=== PATIENT | female | born 1970 | race Caucasian/White ===

== ENCOUNTER 2017-09-14 18:22 | Emergency (ER) | payer BC ==
[2017-09-14 18:28] VITALS: BP 165/88; PULSE 95; TEMP 98.6; BMI 37.1
[2017-09-14 18:39] LABS: HCG,QUALITATIVE URINE Negative
[2017-09-14 18:44] LABS: PH,URINE 7.5 (4.5-8); URINE APPEARANCE Clear; URINE BILIRUBIN Negative (NEGATIVE); URINE GLUCOSE (UA) Negative (NEGATIVE); URINE KETONE Negative (NEGATIVE); URINE LEUK ESTERASE Negative (NEGATIVE); URINE NITRITE Negative (NEGATIVE); URINE PROTEIN Negative (NEGATIVE); URINE UROBILINOGEN 0.2 (0.2-1.0)
[2017-09-14 18:46] LABS: URINE BLOOD Trace-intact (NEGATIVE); URINE COLOR YELLOW
--- NOTE | 2017-09-14 19:41 | PDOC ---
History of Present Illness - General History Source: Patient Exam Limitations: No Limitations - History of Present Illness Initial Comments: 09/14/17 20:15 The patient is a 46 year old female with no significant past medical history who presents to the ED with complaints of urinary urgency and left sided flank pain that began today. She states this morning she woke up and had an episode of diarrhea. Shortly after she reports having the urge to urinate all day accompanied by a pain in her left side and mild nausea. She denies ever having similar symptoms in the past. Denies personal history or family history of kidney stones. She denies any associated fevers or chills. Denies any hematuria , dysuria, or frequency. PAST MEDICAL HISTORY: no significant history PAST SURGICAL HISTORY: no significant history FAMILY HISTORY: no pertinent history SOCIAL HISTORY: Pt lives with family and is employed. MEDICATIONS: reviewed ALLERGIES: As per nursing notes Review of Systems General: No fevers or chills, no weakness, no weight loss HEENT: No change in vision. No sore throat,. No ear pain CardioVascular: No chest pain or shortness of breath Respiratory:No cough, or wheezing. Gastrointestinal:(+) nausea, diarrhea. No vomiting or constipation, No rectal bleeding Genitourinary: (+) urgency. No dysuria, hematuria, or frequency Musculoskeletal: No joint or muscle pain or swelling Neurologic: No headache, vertigo, dizziness or loss of consciousness Psychiatric: nor depression Skin: No rashes or easy bruising Endocrine: no increased thirst or abnormal weight change Allergic: no skin or latex allergy All other systems reviewed and normal Physical Exam GENERAL: The patient is awake, alert, and fully oriented, in no acute distress. HEAD: Normal with no signs of trauma. EYES: Pupils equal, round and reactive to light, extraocular movements intact, sclera anicteric, conjunctiva clear. EXTREMITIES: Normal range of motion, no edema. NEUROLOGICAL: Normal speech, normal gait. PSYCH: Normal mood, normal affect. SKIN: Warm, Dry, normal turgor, no rashes or lesions noted <Judith Cummins - Last Filed: 09/14/17 20:14> - General History Source: Patient Exam Limitations: No Limitations - History of Present Illness Initial Comments: A portion of this note was documented by scribe services under my direction. I have reviewed the details of the note, within reason, and agree with the documentation. The case summary and management plan written by me. Assessment and plan: This is a 46-year-old female who comes in complaining of left flank pain and some urinary urgency. Patient urinalysis was positive for blood. I will obtain a workup to rule out renal colic: Workup will include CBC, comp, CAT scan abdomen and pelvis, pain medication and IV fluids We will reassess and review workup, 09/14/17 22:20 Reevaluation patient's pain has resolved with the Toradol and fluids. Patient' s CAT scan shows a 7 mm stone at the left UVJ. The given the fact the patient's pain has resolved very likely the stone may have passed however well give her urology follow-up some prescription for pain medication and Flomax. Patient discharged home. <Mishel Jim I - Last Filed: 09/14/17 22:25> - General Chief Complaint: Urinary Problem Stated Complaint: urinary urgency Time Seen by Provider: 09/14/17 19:35 Past History <Judith Cummins - Last Filed: 09/14/17 20:14> - Past Medical History Asthma: Yes COPD: No - Suicide/Smoking/Psychosocial Hx Smoking History: Never smoked Hx Alcohol Use: Yes Drug/Substance Use Hx: No Substance Use Type: Alcohol <Mishel Jim I - Last Filed: 09/14/17 22:25> - Past Medical History Allergies/Adverse Reactions: Allergies Allergy/AdvReac Type Severity Reaction Status Date / Time No Known Allergies Allergy Verified 09/14/17 18:23 Home Medications: Ambulatory Orders Naproxen [Naprosyn] 500 mg PO BID #20 tablet 09/14/17 Ondansetron [Zofran Odt -] 4 mg SL TID PRN #14 od.tablet 09/14/17 Tamsulosin HCl [Flomax] 0.4 mg PO DAILY #30 cap.er.24h 09/14/17 *Physical Exam - Vital Signs Last Vital Signs Temp Pulse Resp BP Pulse Ox 98.6 F 95 H 18 165/88 99 09/14/17 18:22 09/14/17 18:22 09/14/17 18:22 09/14/17 18:22 09/14/17 18:22 <Judith Cummins - Last Filed: 09/14/17 20:14> - Vital Signs Last Vital Signs Temp Pulse Resp BP Pulse Ox 98.6 F 95 H 18 165/88 99 09/14/17 18:22 09/14/17 18:22 09/14/17 18:22 09/14/17 18:22 09/14/17 18:22 <Mishel Jim I - Last Filed: 09/14/17 22:25> ED Treatment Course - ADDITIONAL ORDERS Additional order review: Laboratory Results 09/14/17 18:27 Urine Color Yellow Urine Appearance Clear Urine pH 7.5 Ur Specific Fenton 1.015 Urine Protein Negative Urine Glucose (UA) Negative Urine Ketones Negative Urine Blood Trace-intact H Urine Nitrite Negative Urine Bilirubin Negative Urine Urobilinogen 0.2 Ur Leukocyte Esterase Negative Urine HCG, Qual Negative <Judith Cummins - Last Filed: 09/14/17 20:14> - LABORATORY CBC & Chemistry Diagram: 09/14/17 20:50 09/14/17 20:50 - ADDITIONAL ORDERS Additional order review: Laboratory Results 09/14/17 18:27 Urine Color Yellow Urine Appearance Clear Urine pH 7.5 Ur Specific Fenton 1.015 Urine Protein Negative Urine Glucose (UA) Negative Urine Ketones Negative Urine Blood Trace-intact H Urine Nitrite Negative Urine Bilirubin Negative Urine Urobilinogen 0.2 Ur Leukocyte Esterase Negative Urine HCG, Qual Negative <Mishel Jim I - Last Filed: 09/14/17 22:25> *DC/Admit/Observation/Transfer - Attestations Scribe Attestion: 09/14/17 20:19 Documentation prepared by Judith Cummins, acting as medical reception specialist for Mishel Jim MD. <Judith Cummins - Last Filed: 09/14/17 20:14> - Discharge Dispostion Decision to Admit order: No <Mishel Jim I - Last Filed: 09/14/17 22:25> Diagnosis at time of Disposition: Renal colic on left side - Discharge Dispostion Disposition: HOME Condition at time of disposition: Stable - Patient Instructions Printed Discharge Instructions: Kidney Stones -- Adult Additional Instructions: For the pain take naproxen 1 tablet as often as twice a day if needed. If you develop nausea you can take Zofran 1 tablet 2 times a day if needed, Take Flomax to help keep the urine flowing 1 tablet a day. Call the urologist Dr. Gagnon [phone] in the morning for an appointment Return to the emergency department immediately with ANY new, persistent or worsening symptoms. Continue any medications as previously prescribed by your physician. You should follow up with your primary doctor as soon as possible regarding today's emergency department visit. . Please make sure your doctor reviews the results of your emergency evaluation. Thank you for coming to the Emergency Department today for your care. It was a pleasure to see you today. Please note that your evaluation is INCOMPLETE until you follow-up with your doctor.
[2017-09-14] MEDS ORDERED: KETOROLAC TROMETHAMINE 30 MG/1 ML VIAL IVPUSH ONE (20:10)
[2017-09-14] MEDS ORDERED: SODIUM CHLORIDE 1,000 ML IV ONE (20:10)
[2017-09-14] MEDS ORDERED: ONDANSETRON 4 MG/2 ML VIAL IVPB ONE (20:10)
[2017-09-14] MEDS ORDERED: KETOROLAC TROMETHAMINE 30 MG/1 ML VIAL ONE (20:54)
[2017-09-14 21:12] LABS: BASO % 0.5 % (0-2.0); EOS % 0.8 % (0-4.5); HEMATOCRIT 31.4 % (32.4-45.2); HEMOGLOBIN 9.5 GM/dl (10.7-15.3); MCH 20.2 pg (25.7-33.7); MCHC 30.4 g/dl (32.0-36.0); MEAN CELL VOLUME 66.5 fl (80-96); MEAN PLT VOLUME 7.9 fl (7.5-11.1); MONO % 7.1 % (3.8-10.2); NEUT % 75.6 % (42.8-82.8); PLATELET COUNT 325 K/MM3 (134-434); RBC 4.72 M/mm3 (3.60-5.2); RDW 17.9 % (11.6-15.6); WHITE BLOOD COUNT 11.6 K/mm3 (4.0-10.8)
[2017-09-14 21:15] LABS: ADD RBC MORPHOLOGY YES
[2017-09-14 21:29] LABS: GLUCOSE,RANDOM 100 mg/dl (74-106); SGOT/AST 13 U/L (10-42); SODIUM 135 mmol/L (136-145)
[2017-09-14 21:44] LABS: ALBUMIN 3.5 g/dl (3.5-5.0); ALK PHOS 85 U/L (32-92); ANION GAP 8 (8-16); BLOOD UREA NITROGEN 8 mg/dl (7-18); CALCIUM 10.1 mg/dl (8.4-10.2); CHLORIDE 100 mmol/L (98-107); CO2 27 mmol/L (22-28); CREATININE 0.9 mg/dl (0.6-1.3); POTASSIUM 3.8 mmol/L (3.5-5.1); SGPT/ALT 13 U/L (10-40); TOT PROT 6.4 g/dl (6.4-8.3)
[2017-09-14 21:46] LABS: BILIRUBIN,TOTAL < 0.5 mg/dl (0.2-1.0)
[2017-09-14 22:21] LABS: ANISOCYTOSIS 1+
[2017-09-14 22:22] LABS: PLATELET ESTIMATE ADEQUATE
[2017-09-14 22:23] LABS: AMORP PHOS FEW /hpf (NONE SEEN); EPI CELLS FEW /HPF; URINE BACTERIA FEW /hpf (NEGATIVE); URINE WBC 0-2 (0-5)
== END 2017-09-14 23:01 | disposition home or self-care (01) ==
LOC: FER 18:22
PROC: 3E0333Z Introduction of Anti-inflammatory into Peripheral Vein, Percutaneous Approach (ICD-10-PCS; principal; 2017-09-14)
PROC: 3E0337Z Introduction of Electrolytic and Water Balance Substance into Peripheral Vein, Percutaneous Approach (ICD-10-PCS; 2017-09-14)
DX: N23 Unspecified renal colic (principal); J45.909 Unspecified asthma, uncomplicated
CPT/HCPCS: 36415; 74176-TC; 80053; 81003; 81015; 84703; 85025; 99282-25; J7030

== ENCOUNTER 2018-04-13 23:38 | Emergency (ER) | payer BC ==
[2018-04-14 00:17] VITALS: BP 141/93; PULSE 126; TEMP 102.8; BMI 32.3
[2018-04-14] MEDS ORDERED: ACETAMINOPHEN 500 MG TABLET (FP) PO STA (00:37)
[2018-04-14] MEDS ORDERED: ACETAMINOPHEN 325 MG TABLET (FP) ONE (00:48)
--- NOTE | 2018-04-14 01:13 | PDOC ---
History of Present Illness - General History Source: Patient Exam Limitations: No Limitations - History of Present Illness Initial Comments: 04/14/18 01:21 The patient is a 47 year old female, with a significant past medical history of asthma, who presents to the emergency department with, 1 day of malaise, fever, and cough. Patient notes she is the only person at home who is sick. She denies recent headache or dizziness. She denies recent nausea, vomit, diarrhea or constipation. She denies recent dysuria, frequency, urgency or hematuria. She denies recent chest pain or shortness of breath. Allergies: animal dander. Social history: Former smoker <Shakir Zavala - Last Filed: 04/14/18 01:20> <Lina Monreal - Last Filed: 04/14/18 01:50> - General Chief Complaint: SIRS, Suspected/Possible Stated Complaint: DIFFICULTY BREATHING Time Seen by Provider: 04/14/18 00:30 Past History <Shakir Zavala - Last Filed: 04/14/18 01:20> - Past Medical History Asthma: Yes ("Allergy induced") COPD: No - Suicide/Smoking/Psychosocial Hx Smoking History: Never smoked Have you smoked in the past 12 months: No Information on smoking cessation initiated: No Hx Alcohol Use: No Drug/Substance Use Hx: No Substance Use Type: Alcohol <Lina Monreal - Last Filed: 04/14/18 01:50> - Past Medical History Allergies/Adverse Reactions: Allergies Allergy/AdvReac Type Severity Reaction Status Date / Time animal dander AdvReac Verified 04/14/18 01:02 Home Medications: Ambulatory Orders Albuterol 0.083% Nebulizer Elis [Ventolin 0.083% Nebulizer Soln -] 1 neb NEB Q6H PRN #20 vial MDD 4 04/14/18 Oseltamivir Phosphate [Tamiflu -] 75 mg PO BID #10 capsule 04/14/18 Review of Systems - Review of Systems Able to Perform ROS?: Yes Comments:: 04/14/18 01:21 CONSTITUTIONAL: Present: Malaise. Fever Absent: diaphoresis, loss of appetite HEENT: Present: Nasal congestion. Absent: throat pain, throat swelling, difficulty swallowing, mouth swelling, ear pain, eye pain, visual Changes CARDIOVASCULAR: Absent: chest pain, syncope, palpitations, irregular heart rate, lightheadedness , peripheral edema RESPIRATORY: Present: Cough. Absent: shortness of breath, dyspnea with exertion, orthopnea, wheezing, stridor , hemoptysis GASTROINTESTINAL: Absent: abdominal pain, abdominal distension, nausea, vomiting, diarrhea, constipation, melena, hematochezia GENITOURINARY: Absent: dysuria, frequency, urgency, hesitancy, hematuria, flank pain, genital pain MUSCULOSKELETAL: Absent: myalgia, arthralgia, joint swelling SKIN: Absent: rash, itching, pallor HEMATOLOGIC/IMMUNOLOGIC: Absent: easy bleeding, easy bruising, lymphadenopathy, frequent infections ENDOCRINE: Absent: unexplained weight gain, unexplained weight loss, heat intolerance, cold intolerance NEUROLOGIC: Absent: headache, focal weakness or paresthesias, dizziness, unsteady gait, seizure, mental status changes, bladder or bowel incontinence PSYCHIATRIC: Absent: anxiety, depression, suicidal or homicidal ideation, hallucinations. All Other Systems: Reviewed and Negative <Shakir Zavala - Last Filed: 04/14/18 01:20> *Physical Exam - Vital Signs Last Vital Signs Temp Pulse Resp BP Pulse Ox 102.8 F H 126 H 22 H 141/93 96 04/13/18 23:45 04/13/18 23:45 04/13/18 23:45 04/13/18 23:45 04/13/18 23:45 - Physical Exam Comments: 04/14/18 01:21 +GENERAL: Uncomfortably appearing. Awake and alert. No acute distress. HEENT: Normocephalic, atraumatic. PERRLA, EOMI. No conjunctival pallor. Sclera are non- icteric. Moist mucous membranes. Oropharynx is clear. NECK: Supple. Full ROM. No JVD. Carotid pulses 2+ and symmetric, without bruits. No thyromegaly. No lymphadenopathy. +CARDIOVASCULAR: Tachycardic. No murmurs, rubs, or gallops. Distal pulses are 2+ and symmetric. PULMONARY: No evidence of respiratory distress. Lungs clear to auscultation bilaterally. No wheezing, rales or rhonchi. ABDOMINAL: Soft. Non-tender. Non-distended. No rebound or guarding. No organomegaly. Normoactive bowel sounds. MUSCULOSKELETAL Normal range of motion at all joints. No bony deformities or tenderness. No CVA tenderness. EXTREMITIES: No cyanosis. No clubbing. No edema. No calf tenderness. SKIN: Warm and dry. Normal capillary refill. No rashes. No jaundice. NEUROLOGICAL: Alert, awake, appropriate. Cranial nerves 2-12 intact. No deficits to light touch and temperature in face, upper extremities and lower extremities. No motor deficits in the in face, upper extremities and lower extremities. Normoreflexic in the upper and lower extremities. Normal speech. Toes are down- going bilaterally. Gait is normal without ataxia. PSYCHIATRIC: Cooperative. Good eye contact. Appropriate mood and affect. <Shakir Zavala - Last Filed: 04/14/18 01:20> - Vital Signs Last Vital Signs Temp Pulse Resp BP Pulse Ox 102.8 F H 126 H 22 H 141/93 96 04/13/18 23:45 04/13/18 23:45 04/13/18 23:45 04/13/18 23:45 04/13/18 23:45 <Lina Monreal - Last Filed: 04/14/18 01:50> Moderate Sedation - Procedure Monitoring Vital Signs: Procedure Monitoring Vital Signs Temperature 102.8 F H 04/13/18 23:45 Pulse Rate 126 H 04/13/18 23:45 Respiratory Rate 22 H 04/13/18 23:45 Blood Pressure 141/93 04/13/18 23:45 O2 Sat by Pulse Oximetry (%) 96 04/13/18 23:45 <Shakir Zavala - Last Filed: 04/14/18 01:20> - Procedure Monitoring Vital Signs: Procedure Monitoring Vital Signs Temperature 102.8 F H 04/13/18 23:45 Pulse Rate 126 H 04/13/18 23:45 Respiratory Rate 22 H 04/13/18 23:45 Blood Pressure 141/93 04/13/18 23:45 O2 Sat by Pulse Oximetry (%) 96 04/13/18 23:45 <Lina Monreal - Last Filed: 04/14/18 01:50> ED Treatment Course - Medications Given in the ED: ED Medications Discontinued Medications Generic Name Dose Route Start Last Admin Trade Name Freq PRN Reason Stop Dose Admin Acetaminophen 975 mg 04/14/18 00:37 04/14/18 00:55 Tylenol - PO 04/14/18 00:38 975 mg ONCE STA Administration <Shakir Zavala - Last Filed: 04/14/18 01:20> - Medications Given in the ED: ED Medications Discontinued Medications Generic Name Dose Route Start Last Admin Trade Name Yury PRN Reason Stop Dose Admin Acetaminophen 975 mg 04/14/18 00:37 04/14/18 00:55 Tylenol - PO 04/14/18 00:38 975 mg ONCE STA Administration <Lina Monreal - Last Filed: 04/14/18 01:50> Medical Decision Making - Medical Decision Making 04/14/18 01:34 47-year-old female with 1 day history of fever and cough. no wheezing ,no crackles on lung exam pt is not hypoxic INFLUENZA A positive pt will be started on tamiflu and given instructions to return for any difficulty breathing The patient does not have any active wheezing now, she says she will be much more comfortable if we could give her a breathing treatment before she goes home Also she has a nebulizer at home and she would like albuterol RX sent to the pharmacy in case she does develop wheezing later 04/14/18 01:46 <Lina Monreal - Last Filed: 04/14/18 01:50> *DC/Admit/Observation/Transfer - Attestations Scribe Attestion: 04/14/18 01:21 Documentation prepared by Shakir Zavala, acting as medical administrative assistant for Lina Monreal MD. <Shakir Zavala - Last Filed: 04/14/18 01:20> <Lina Monreal - Last Filed: 04/14/18 01:50> Diagnosis at time of Disposition: Influenza A - Discharge Dispostion Disposition: HOME Condition at time of disposition: Stable - Prescriptions Prescriptions: Albuterol 0.083% Nebulizer Elis [Ventolin 0.083% Nebulizer Soln -] 1 neb NEB Q6H PRN #20 vial MDD 4 PRN Reason: Wheezing Oseltamivir Phosphate [Tamiflu -] 75 mg PO BID #10 capsule - Patient Instructions Printed Discharge Instructions: DI for Influenza -- Adult, DI for Fever ( Symptom) -- Adult Additional Instructions: please take tylenol or motrin for fever and bodyaches rest stay hydrated return for any respiratory difficulties - Post Discharge Activity Forms/Work/School Notes: Back to Work
[2018-04-14] MEDS ORDERED: OSELTAMIVIR PHOSPHATE 75 MG CAPSULE PO ONE (01:34)
[2018-04-14] MEDS ORDERED: OSELTAMIVIR PHOSPHATE 75 MG CAPSULE ONE (01:40)
[2018-04-14] MEDS ORDERED: ALBUTEROL SO4 2.5/IPRATROPIUM 0.5 INH SOL 3 ML VIAL.NEB. NEB ONE ×2 (01:43→01:45)
--- NOTE | 2018-04-14 18:57 | EKG ---
Test Reason : Blood Pressure : / mmHG Vent. Rate : 127 BPM Atrial Rate : 127 BPM P-R Int : 144 ms QRS Dur : 072 ms QT Int : 302 ms P-R-T Axes : 070 007 055 degrees QTc Int : 438 ms SINUS TACHYCARDIA OTHERWISE NORMAL ECG WHEN COMPARED WITH ECG OF 05-SEP-2010 13:57, NO SIGNIFICANT CHANGE WAS FOUND Confirmed by MISTY BARKSDALE MD ([id number]) on 04/14/2018 6:56:56 PM Referred By: Confirmed By:MISTY BARKSDALE MD
== END 2018-04-14 02:06 | disposition home or self-care (01) ==
LOC: JER 23:38
PROC: 3E0F7GC Introduction of Other Therapeutic Substance into Respiratory Tract, Via Natural or Artificial Opening (ICD-10-PCS; principal; 2018-04-13)
DX: J09.X2 Influenza due to identified novel influenza A virus with other respiratory manifestations (principal)
CPT/HCPCS: 87804; 93005; 93010; 99282-25